=== PATIENT | male | born 1950 | race Caucasian/White ===

== ENCOUNTER 2024-07-15 08:14 | Day surgery (SDC) | payer OTHER, SELFPAY ==
[2024-07-10 13:55] VITALS: BMI 29.5
[2024-07-10 14:26] LABS: % Basophils 0.8 % (0-2); % Eosinophils 1.9 % (0-6); % Immature Granulocytes 0.3 % (0-0.5); % Lymphocytes 28.5 % (20.5-51.1); % Monocytes 9.7 % (1.7-9.3); % Neutrophils 58.8 % (42.2-75.2); Absolute Basophils 0.1 10^3/uL (0-0.2); Absolute Eosinophils 0.1 10^3/uL (0-0.7); Absolute Lymphocytes 1.8 10^3/uL (1.2-3.4); Absolute Monocytes 0.6 10^3/uL (0.1-0.6); Absolute Neutrophils 3.6 10^3/uL (1.4-6.5); Hematocrit 42.7 % (39.0-52.0); Hemoglobin 14.4 g/dL (13.0-18.0); Mean Corp Hgb Conc. 33.7 g/dL (33.0-37.0); Mean Corpuscular Hgb 32.1 pg (27.0-31.0); Mean Corpuscular Volume 95.1 fL (80.0-94.0); Mean Platelet Volume 9.2 fL (7.4-10.4); Nucleated Red Blood Cells % 0 % (-); Platelet Count 221 10^3/uL (130-400); Red Blood Cell Count 4.49 10^6/uL (4.70-6.10); Red Cell Dist. Width 12.7 % (11.5-14.5); White Blood Cell Count 6.2 10^3/uL (4.8-10.8)
[2024-07-10 14:29] LABS: ALT (SGPT) 18 U/L (0-50); AST (SGOT) 21 U/L (17-59); Alkaline Phosphatase 53 U/L (38-126); Blood Urea Nitrogen 15 mg/dl (9-20); Calcium 9.4 mg/dl (8.4-10.2); Carbon Dioxide 31 mmol/L (22-30); Chloride 103 mmol/L (98-107); Estimated Creatinine Clearance 69 ml/min; Glucose 94 mg/dl (70-99); Potassium 4.5 mmol/L (3.5-5.1); Sodium 140 mmol/L (135-145); Total Bilirubin 1.2 mg/dl (0.2-1.3); Total Protein 6.7 g/dl (6.3-8.2); eGFR > 60.00
[2024-07-15] VITALS (15 sets, daily range): BP systolic 89–158; BP diastolic 58–118
[2024-07-15] MEDS: NSS 500 IV (09:47)
[2024-07-15 12:01] LABS: ACT-LR - POC 327 Seconds (116-155)
[2024-07-15 12:35] LABS: ACT-LR - POC 390 Seconds (116-155)
[2024-07-15 13:09] LABS: ACT-LR - POC 348 Seconds (116-155)
--- NOTE | 2024-07-15 13:38 | ITS.CL.ABL ---
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
Ablation
Procedure Report:
AFIB ablation:
Mr. Floyd is a very pleasant 73 yr old gentleman with symptomatic persistent AF / atypical atrial flutter failed Flecainide and Atenolol with presented today to the EP lab for atrial fibrillation ablation.
Date of the Procedure:
07/15/2024
Indications:
Persistent atrial fibrillation
Pre-Operative Diagnosis:
Persistent atrial fibrillation
Post-Operative Diagnosis:
Persistent atrial fibrillation
Procedure Performed:
Atrial fibrillation ablation with Pulsed-Field approach for pulmonary vein isolation
Posterior wall isolation
Performing Physician:
Christnia Perez MD
Assistants:
EP staff
Anesthesia:
See anesthesia records
Detailed Description of the Procedure:
Written informed consent was obtained from the patient after a full explanation of the risks and benefits of the procedure including the risks of sedation and anesthesia.
The patient was brought to the electrophysiology laboratory in stable condition in fasting state. Continuous electrocardiographic and hemodynamic monitoring was initiated.
The initial rhythm was atrial fibrillation.
The procedure site was meticulously prepared with surgical scrub and allowed to dry with no pooling. Sterile draping was applied to cover the procedure site. The image intensifier was draped with sterile bag and positioned over the patient. After
infusion of local anesthetic, vascular access was obtained under ultrasound guidance and sheaths were placed over guide wire as detailed below.
Sheath and Catheter Placement:
In the right femoral vein, an 8-Haitian sheath was placed under ultrasound guidance for use during the ablation procedure and a mapping catheter was intermittently placed in the high right atrium, right ventricle, left atrium. In the right femoral
vein, another 9-Fr sheath was placed for use during intra-cardiac echo procedure. Another 7Fr sheath was placed in the left femoral vein for CS catheter placement.
The sheaths were upgraded as needed during the case. Intra-cardiac catheters were positioned using direct fluoroscopic guidance. Decapolar catheter advanced into CS position. ICE catheter was placed in RA. The following catheters / sheaths were
placed
Sheaths:
��������� 15Fr steerable sheath (FlexCath Cross�, Virtual Paper) in right femoral vein in right femoral vein
��������� 9Fr in right femoral vein
��������� 7Fr in right femoral vein
Catheters:
��������� ROBERT HD Grid mapping catheter � at locations of RA, LA
��������� PulseSelect� PFA catheter
��������� ICE catheter -AcuNav - at locations of RA, SVC, and RV.
��������� Decapolar Bard catheter in RA and CS
Intracardiac ECHO:
An 8-Haitian AcuNav intracardiac ECHO (ICE) probe was advanced through the 9-Haitian sheath in the right femoral vein into the right atrium under fluoroscopic and ICE ultrasound image guidance and a baseline ECHO study was performed. The left atrial
size was dilated. There was moderate tricuspid regurgitation. The aortic valve was grossly normal. There was normal left ventricular systolic functions. There is trace pericardial effusion. All the four veins were identified and has flow identified.
During the procedure, ICE was used for monitoring of complications, guidance of trans-septal puncture, monitor the catheter position and tracking ablation lesions. No change in the pericardial space noted throughout the procedure.
Trans-septal Puncture:
Heparin was initiated and infused to maintain appropriate ACT. A J-tipped guidewire was advanced through the 8-Haitian sheath in the right femoral vein into the superior vena cava under fluoroscopic and ICE guidance. The 8-Haitian sheath was exchanged
for a FlexCath Cross sheath which was advanced into the superior vena cava. An [employer] transseptal access system was utilized to perform the trans-septal puncture. The apparatus was withdrawn until it was in contact with the fossa ovalis. The
position was adjusted based on fluoroscopy and ultrasound images from ICE. Under fluoroscopic, hemodynamic and ICE ultrasound guidance, left atrium was cannulated by advancing the needle. Once atrial septum was cannulated, the needle was pulled back
and a guide wire was advanced through the needle into the left atrium. The guide wire was advanced into the left superior pulmonary vein. Both the sheath and the dilator was advanced into the left atrium. The dilator with the needle was withdrawn.
Blood was aspirated from the FlexCath cross sheath and arterial blood confirmed. The sheath was flushed. Saline injection noted into the left atrium on ICE. The mapping catheter was advanced in the Flexcath sheath into the left pulmonary vein. Left
atrial pressure was measured.
3D Electroanatomic Mapping:
Using the HD Grid catheter advanced through sheath into the left atrium, an electroanatomic map (EAM) of the left atrium was created using [employer] mapping system. The map was used for localization of catheter position and tacking of ablation
lesions. The EAM of the left atrium showed 5 pulmonary veins with two left sided and three right sided veins electrically connected to the body the LA. There was extensive areas of low voltage noted in the left atrium with minimal electrical
activity in the posterior wall in atrial fibrillation. But once mapped in sinus rhythm, the posterior and anterior mistry had some healthy areas with only patchy scar all over the LA.
The LA was dilated in size.
Following the EAM, preparation were made for ablation.
Ablation:
Ablation # 1: Pulmonary vein Isolation:
Glycopyrrolate 0.2 mg was given prior to the placement of ablation. Using OpenDrive� pulsed field ablation system, pulmonary vein isolation was achieved. First the ablation catheter was placed in the LIPV and ostial ablation lesions were performed
in a counter clock sweet approach all around the PV ostium circumferentially. Then the catheter was placed on the antral location and multiple ablation lesions were placed circumferentially on the antrum of the vein.
In the similar fashion, the LSPV were isolated.
Then the catheter was moved to right sided veins. The ostial and antral ablations were placed as noted above to the RSPV and RIPV.
Ablation # 2: Posterior wall isolation:
With low voltage areas of the posterior wall and atypical atrial flutters, it was decided to create the roof line block and then proceed with tractor operator laser leveling wall isolation. �
Using the pulsed field ablation catheter, the catheter was placed on the posterior wall and moved around the posterior wall to have adequate contact and ablations were placed isolating the posterior wall.
Cardioversion:
Once the PV isolation was achieved, decision was made to proceed with cardioversion. A 200 J biphasic shock was applied on the annel posterior Zoll patches and sinus rhythm was achieved. No significant pause noted.
�
Summary of ablation applied:
LSPV: 18 lesions ;�������������� RSPV: 12 lesions;�������������
LIPV: 17 lesions; �������������� RIPV: 17 lesions
PW: 19 lesions.
Total 83 ablation lesions.
Post ablation Electroanatomic mapping:
Once ablation was completed, the EAM of the LA was done again in sinus rhythm with excellent demarcation of LA myocardium and isolated antral tissue. There was dissociated signals were noted in the veins as well.
EPS and Confirmation of the PVI and bidirectional block:
Following achievement of entrance block at the pulmonary veins, pacing from the HD catheter in each of the four veins at 10 milliamps for 2 milliseconds showed entrance and exit block. All PVI were rechecked at the end of the case and remained
isolated with dissociated and local capture with pacing. Entrance and exit block were demonstrated in all veins.
Procedure End
ICE study was done again that showed no epicardial accumulation. No complications noted.
Following the completion of the EP study, catheters were removed. Protamine 40 mg was given at the end of the procedure and ACT was checked repeatedly. The sheaths were removed and hemostasis achieved with VASCADE and manual compression after
acceptable ACT is achieved.
Left atrial Pressure:
Pre-Procedure: Mean LA pressure was 11mmHg
Post-Procedure: Mean LA pressure was 10mmHg
Post-Procedure: Mean LR pressure was 7mmHg
Fluoro time:
9.3min / 9.05 Gycm2
Estimated Blood loss:
<10 cc
Specimens Removed:
None.
Implants / Devices:
None
Urine output:
None
Packs / Drains/ Tubes:
None
Instrument / Sponge Count Correct:
Yes
Complications of the Procedure:
None
Condition of Patient at Time of Transfer:
Hemodynamically stable with no neurological or vascular compromise.
Summary:
Successful atrial fibrillation ablation with Pulsed Field approach for pulmonary vein isolation
Figures from the Procedure:
Figure 1: The electroanatomic mapping (EAM) of the left atrium with bipolar voltage (purple indicates normal electrical activity with lin as no myocardial muscle electric activity indicating a line of block or scar.
[2024-07-15] MEDS: TYLENOL 650 MG PO (14:23)
[2024-07-15] MEDS: ANESTHETIC LOZENGE 1 LOZENGE PO (14:25)
--- NOTE | 2024-07-15 16:21 | W.PN.UPDATE ---
Update Note
Progress Note Update
Pt seen post PFA. Right groin site with vascade closure, no ht/bleeding. OOB ambulating. Urinating without difficulty. Post EKG NSR, no acute changes. Resume eliquis tonight at usual time. Discontinue flecainide. Followup at [facility] as scheduled and
with Dr. Chavarria thereafter. Home today if groin site/tele remain stable.
== END 2024-07-15 17:05 | disposition home or self-care (01) ==
LOC: CATH 08:14
PROVIDERS: ATTENDING PHYSICIAN Internal Medicine Cardiovascular Disease; FAMILY PHYSICIAN Family Medicine
DX: I48.19 Other persistent atrial fibrillation (principal); Z82.49 Family history of ischemic heart disease and other diseases of the circulatory system; I10 Essential (primary) hypertension; Z79.01 Long term (current) use of anticoagulants
CPT/HCPCS: C1732; C1769 ×2; C1894; C1730; C1766; C1892; 36415; 80053; 85025; 85347; 86850; 86900; 86901; 93005; 93656; 93657; C1733; C1759; C1760

== ENCOUNTER 2024-09-25 08:46 | Day surgery (SDC) | payer OTHER, SELFPAY ==
[2024-09-25] VITALS (29 sets, daily range): BP systolic 88–156; BP diastolic 61–98
[2024-09-25 11:54] LABS: ACT-LR - POC 314 Seconds (116-155)
[2024-09-25 12:13] LABS: ACT-LR - POC 284 Seconds (116-155)
[2024-09-25 12:47] LABS: ACT-LR - POC 376 Seconds (116-155)
--- NOTE | 2024-09-25 13:41 | ITS.CL.ABL ---
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
Ablation
Procedure Report:
AFIB / A flutter ablation:
Mr. Floyd is a very pleasant 74 yr old gentleman with medical history significant for symptomatic persistent atrial fibrillation s/p AF ablation on 07/15/24 with PVI and PWI using pulse select PFA catheter and ROBERT mapping who had developed atypical
atrial flutter in the office and now has degenerated into atrial fibrillation and is here in the EP lab for atrial fibrillation / flutter ablation
Date of Procedure:
09/25/2024
Indications:
Symptomatic persistent atrial fibrillation / atrial flutter
Pre-Operative Diagnosis:
Persistent atrial fibrillation / atrial flutter
Post-Operative Diagnosis:
Persistent atrial fibrillation / atrial flutter
Procedure Performed:
Redo atrial fibrillation ablation
Roof line formation for atypical roof dependent atrial flutter
Posterior wall isolation ablation
Left atrial anterior wall tachycardia ablation
Biatrial flutter ablation
Ablation of anterior wall flutter line of block creation for demetrius-mitral flutter
Performing Physician:
Christina Perez MD
Assistants:
EP staff
Anesthesia:
See anesthesia records
Detailed Description of the Procedure:
Written informed consent was obtained from the patient after a full explanation of the risks and benefits of the procedure including the risks of sedation and anesthesia.
The patient was brought to the electrophysiology laboratory in stable condition in fasting state. Continuous electrocardiographic and hemodynamic monitoring was initiated.
The initial rhythm was atrial fibrillation.
The procedure site was meticulously prepared with surgical scrub and allowed to dry with no pooling. Sterile draping was applied to cover the procedure site. The image intensifier was draped with sterile bag and positioned over the patient. After
infusion of local anesthetic, vascular access was obtained under ultrasound guidance and sheaths were placed over guide wire as detailed below.
The images of the ultrasound of the femoral vessels were stored in patient chart.
Sheath and Catheter Placement:
Given patient renal transplant, long sheaths were used for the acess
Sheaths:
��������� Agilis sheath in right femoral vein upgraded from 8Fr in right femoral vein
��������� 9Fr in left femoral vein
Catheters:
��������� The Affera Sphere 9 catheter -bidirectional D/F� - at locations of HRA, RV, LA and LV.
��������� ICE catheter -AccuNav -� at locations of RA, SVC, and RV.
Heparin was initiated after the access was obtained.
Intracardiac ECHO:
An 8-Slovak AcuNav intracardiac ECHO (ICE) probe was advanced through the 9-Slovak sheath in the left femoral vein into the right atrium under fluoroscopic and ICE ultrasound image guidance and a baseline ECHO study was performed. The left atrial
size was dilated. There was trace tricuspid regurgitation. The aortic valve was grossly normal. There was normal left ventricular size and function. There is a trace pericardial effusion. The BRANDON has normal velocities. The pulmonary had good flow
identified.
During the procedure, ICE was used for monitoring of complications, guidance of trans-septal puncture, monitor the catheter position and tracking ablation lesions. No change in the pericardial space noted throughout the procedure.
Trans-septal Puncture:
Heparin was initiated and infused to maintain appropriate ACT. A J-tipped guidewire was advanced through into the superior vena cava under fluoroscopic and ICE guidance. The Agilis sheath with BRK needle was advanced into the superior vena cava over
the guidewire. The apparatus was withdrawn until it was in contact with the fossa ovalis. The position was adjusted based on fluoroscopy and ultrasound images from ICE. Under fluoroscopic, hemodynamic and ICE ultrasound guidance, left atrium was
cannulated by advancing the needle. Once atrial septum was cannulated, the needle was pulled back and the guide wire was advanced through the needle into the left atrium. The guide wire was advanced into the left superior pulmonary vein. Both the
sheath and the dilator was advanced into the left atrium. The dilator with the needle was withdrawn. Blood was aspirated from the Agilis sheath and arterial blood confirmed. The sheath was flushed. Saline injection noted into the left atrium on ICE.
The waveform of the LA pressure was recorded. The mapping catheter was advanced in the Agilis sheath into the left pulmonary vein.
3D Electroanatomic Mapping:
Using the Sphere 9 Affera catheter advanced through Agilis sheath into the left atrium, an electroanatomic map (EAM) of the left atrium was created using [employer]� mapping system with Pomelo-1 software. The map was used for localization of catheter
position and tacking of ablation lesions. The EAM of the left atrium showed a total of 4 PVs with two left and the two right sided pulmonary veins with all electrically isolated from the body the LA. It showed scattered scar on the posterior wall of
the LA. The LA was dilated in size.
Cardioversion:
The EAM of the LA was difficult to assess in atrial fibrillation and to assess PV and posterior wall connections, patient was cardioverted to sinus rhythm. A synchronized 150 J shock was delivered via annel-posterior Zoll patches restoring his
rhythm to sinus.
�
The EAM in sinus rhythm showed silent vein with some electrograms still present on the posterior wall. There was extensive scar on the anterior wall slowing the conduction and a set up for flutter.
Following the EAM, preparation were made for ablation.
Ablation:
Ablation # 1: Atypical atrial flutter / Roof line Formation:
Given silent pulmonary veins, the decision was made to proceed with roof line formation for the AF/Flutter.
Pulsed field ablation was performed using an open irrigation, bidirectional, contact sensing, dual energy ablation catheter (Affera sphere -9). A set of pulsed field ablations were placed on the roof line connecting the left superior pulmonary vein
ablation lesions to the right superior pulmonary vein lesions rings.
Ablation # 2: Pulmonary vein Isolation:
Pulsed field ablation was performed using an open irrigation, bidirectional, contact sensing, dual energy ablation catheter (Affera sphere -9) by completing the circumferential lesions around the left and right pulmonary veins achieving pulmonary
vein isolation extending the WACA lesions.
Confirmation of the PVI and bidirectional block:
Following achievement of entrance block at the pulmonary veins, pacing from the Sphere 9 affera catheter in each of the four veins at 20 milliamps for 4 milliseconds showed entrance and exit block.
The LA was mapped with The [employer]� mapping system with Prism-1 software in sinus rhythm confirming the line of block at the ablation lesions lines.
Ablation # 3: Posterior wall isolation with the Box lesions set Formation:
There was a significant fractionation seen in the posterior wall and LA AF foci along with CFAE made it clear as the posterior wall is critical in maintaining the atrial fibrillation and the decision was made to isolate the posterior wall by
creating a �Box� lesions.
A set of Pulsed field ablations were placed on the floor line connecting the left inferior pulmonary vein ablation lesions to the right inferior pulmonary vein lesions rings.
The sphere 9 in the posterior wall showed entrance block and the pacing from the posterior wall showed no exit from the box lesions confirming the exit block.
With the box lesion created and block confirmed, the decision was made to ablate the posterior wall severing epicardial connections and decision was made to create the Y ablation on the posterior wall.
A series of ablations were placed connecting the junction of left superior pulmonary vein and the roof line to the junction of right inferior pulmonary vein and the floor line ablating the ganglion plexi next to both antra.
Ablation # 4: Anterior wall focal / micro reentry flutter ablation:
There was focal atrial tachycardia noted at the base of the BRANDON on the anterior wall with baseline severely fractionated signals adjacent to a scar tissue.
Series of ablations were placed to suppress any abnormal activity.
Ablation # 4: Anterior left atrial Mitral flutter line
The ablation at the anterior wall made the continuation of flutter more likely. The flutter was also thought to be mitral dependent.
A series of ablations were placed connecting the scar to the anterior wall and to the mitral isthmus and to the roof line.
Ablation # 4: Biatrial flutter with Ricarda bundle ablation.
The flutter was noted that was originating at the ricarda bundle indicating involving both the atria. The ablation was done at the earliest origin on the Ricarda bundle and connected that area to the mitral line of block.
EP study:
Sinus Node Function: The sinus node functions are within acceptable normal range.
Atrioventricular Peewee Function: �Norm AV conduction noted with normal decremental conduction.
Procedure End
ICE study was done again that showed no epicardial accumulation. No complications noted.
Following the completion of the EP study, catheters were removed. Protamine 30 mg was given at the end of the procedure and ACT was checked repeatedly. The sheaths were removed and hemostasis achieved with manual compression after acceptable ACT is
achieved.
Left atrial Pressure:
Pre-Procedure: Mean LA pressure was 21mmHg
Post-Procedure: Mean LA pressure was 19mmHg
Post-Procedure: Mean RA pressure was 14mmHg
Estimated Blood loss:
<10 cc
Specimens Removed:
None.
Implants / Devices:
None
Urine output:
None
Packs / Drains/ Tubes:
None
Instrument / Sponge Count Correct:
Yes
Complications of the Procedure:
None
Condition of Patient at Time of Transfer:
Hemodynamically stable with no neurological or vascular compromise.
Summary:
��������� Successful atrial fibrillation ablation with circumferential bidirectional line of block at pulmonary venin antra (Pulmonary vein isolation), roof flutter line creation, Posterior wall isolation, focal atrial tachycardia ablation, mitral
flutter ablation, biatrial flutter ablation.
Figures from the Procedure:
Figure 1: The electroanatomic mapping (EAM) of the left atrium with bipolar voltage (purple indicates normal electrical activity with red as no myocardial muscle electric activity indicating a line of block or scar.
--- NOTE | 2024-09-25 16:18 | W.PN.UPDATE ---
Update Note
Progress Note Update
74 yo WM s/p PVI/Aflutter ablation (same day). He denies cp, sob, roro diet, EKG SR, R fem site initially with some bleeding, manual pressure held and remains c/d/i, soft. He was told to switch from eliquis to pradaxa due to cost on 09/17 office visit,
but he stopped eliquis when he ran out on 09/21. AMILCAR was done prior to ablation with no BRANDON clot. He will start pradaxa tonight at home 7pm. Activity restrictions reviewed. 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 He is for d/c home after 6pm if groin stable and
able to void.
[2024-09-25] MEDS: PRADAXA 150 MG PO (18:40)
== END 2024-09-25 19:10 | disposition home or self-care (01) ==
LOC: CATH 08:46
PROVIDERS: ATTENDING PHYSICIAN Internal Medicine Cardiovascular Disease; FAMILY PHYSICIAN Family Medicine; OTHER PHYSICIAN Internal Medicine Clinical Cardiac Electrophysiology
DX: I48.19 Other persistent atrial fibrillation (principal); I08.3 Combined rheumatic disorders of mitral, aortic and tricuspid valves; I70.0 Atherosclerosis of aorta; I08.8 Other rheumatic multiple valve diseases; I48.4 Atypical atrial flutter; I10 Essential (primary) hypertension; Z79.01 Long term (current) use of anticoagulants
CPT/HCPCS: 93655; 93312; 93320; 93325; C1769; C1894; C1730; C1733; C1766; C1892; C1759; 85347; 86850; 86900; 86901; 93005; 93656; 93657

== ENCOUNTER 2025-03-05 11:31 | Day surgery (SDC) | payer OTHER, SELFPAY ==
[2025-03-05] VITALS (12 sets, daily range): BP systolic 108–125; BP diastolic 80–94; BMI 25.7
--- NOTE | 2025-03-05 15:38 | ITS.CL.PACE ---
[employer] Contact Printer - Pacemaker Implant
Pacemaker Implant
Procedure Report:
Conduction system pacing Permanent Pacemaker Placement:
Mr. 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
Indications:
Tachy bradycardia syndrome
Date of the Procedure:
03/05/2025
Pre-Operative Diagnosis: Tachy bradycardia syndrome
Post-Operative Diagnosis: Tachy bradycardia syndrome
Procedure Performed: Conduction system pacing permanent pacemaker
Performing Physician:
Christina Perez MD
Anesthesia:
See anesthesia report.
Detailed Description of the Procedure:
The patient was identified using hospital identification and informed consent obtained for the procedure. The risks were explained to the patient and the family including, but not limited to: Bleeding, infection, arrhythmia, stroke,
vascular/cardiac/lung puncture, surgery, pacemaker dependency/device malfunction. All questions were answered.
A surgical pause was performed in accordance with hospital regulations. Anesthesia service provided sedation as reported separately. Antibiotics administered IV for risk of bacterial colonization. After obtaining informed and written consent, the
patient was brought to the electrophysiology laboratory.
The initial rhythm was atrial flutter
The procedure site was meticulously prepared with surgical scrub and allowed to dry with no pooling. Sterile draping was applied to cover the procedure site. The image intensifier was draped with sterile bag and positioned over the patient.
A surgical pause and time out was performed immediately prior to the procedure with review of her medical history, recent labs, allergies and medications with site of procedure identified and consent noted in the chart. Antibiotics pre operatively
given. All team members concurred.
The left infraclavicular region was prepped and draped in the usual sterile fashion. Local anesthesia was administered subcutaneously using 1% lidocaine / Bupivacaine. The left cephalic vein cutdown was performed with an incision at the
delto-pectoral groove, and vascular sheath was introduced for lead access.
A subcutaneous pocket was created with blunt dissection and use of electrocautery. Hemostasis was excellent.
The guide wire was advanced to the RA and was advanced to the RV. The preformed curved long hemostatic peel away HIS sheath was advanced into the RV cavity. A left bundle pacing wire was advanced into the sheath to the tip with ventricular signals
noted with unipolar manner.
The HIS location was identified under guidance of the fluoroscopy and the pacing wire signals. The sheath with the pacing lead was moved deeper into the RV cavity on the septum at a more inferior and distal to the HIS signals.
There was sheath approximation confirmed on ЮЛИЯ view. Once adequate signals were noted on the electrograms of the pacing lead in the sheath with W pattern signals on the RV septum, the lead was advanced and clockwise turns were done under
fluoroscopic guidance. The septum was engaged and the lead was paced intermittently after every 2-3 turns. The Impedance of the lead was measured that remained stable around 700 Ohm. The lead was paced and septal pacing was noted. The sheath was
placed again to the septum and the lead was advanced 2-3 turns with pacing with each advancement. The ventricular capture was monitored throughout and the captures gradually changed from RV pacing to non-selective pacing to LBB pacing with R wave on
V1 morphology.
The long guiding sheath was cut and removed from the RV without change in lead position, impedance, sensing, or capture. The lead was sutured to the underlying pectoralis fascia with 2-0 Ethibond stitches.
Then the attention was given to atrial lead. Atrial active lead was placed in the RA and into the RAA. There were excellent impedance and thresholds.
The leads were attached to the pulse generator in standard configuration with acceptable sensing and threshold parameters. The pocket was irrigated with antibiotic solution; the pocket was inspected with no active bleeding noted. The device and the
leads were placed in the pocket.
The pocket was rinsed with antibiotics soaked solution.
Deep subcutaneous tissues were closed with three layers of 2-0 V loc sutures; and the dermis was reopposed using a running 4-0 Monocryl subcuticular suture.
Sponge counts / sharp counts were appropriate.
Procedure End:
The procedure was tolerated well. Aquacel bandaged was applied.
Estimated Blood loss:
5 cc
Specimens Removed:
No cultures and no specimens were obtained. No intraoperative pathology was identified.
Urine output:
None
Packs / Drains/ Tubes:
None
Instrument / Sponge Count Correct:
Yes
Flouro time:
1.4min / 0.59 Gycm2
Complications of the Procedure:
None
Condition of Patient at Time of Transfer:
Hemodynamically stable with no neurological or vascular compromise.
Device information:�
Generator: Auditude; Model: W1DR01; Serial # [id number]�
RA pacing lead: Auditude; Model: 5076-52; Serial # [id number]
Measured data on the RV lead was sensing of 1.3 mV of flutter waves, impedance of 475 ohms. Burst pacing was able to capture atrium but was not able to eliminate flutter.
RV LBB pacing lead: MedKardium; Model: 3830-69; Serial # [id number]
Measured data on the RV lead was sensing of 7.3mV, impedance of 722 ohms and threshold of 0.75 V at 0.4ms�
PROGRAMMING PARAMETERS:�
Sarah parameter settings were AAIR <=> DDDR 60-130 �
Paced AV interval: 180ms
Sensed AV interval: 150 ms.
Rate Adaptive A-V Interval: on
Mode switch ON
Summary:
Successful implantation of MRI compatible dual chamber conduction system pacing permanent pacemaker.
Results/Recommendations:
-Please follow up CXR�
1. Please provide patient with adequate pain control�
Instructions to be given to patient:�
- Please follow up with [facility] at [address] [place] [address] ([phone]) to get your wound checked in 2 weeks of your discharge. Then follow with
- Do not wet incision site until after it is evaluated at cardiology clinic. No baths or showers until then. Sponge baths / showers are OK but dab dry the dressing after it is wet.�
- Allow 'steri strips' to fall off on their own�
- Do not lift left elbow above shoulder, particularly with sudden jerking movements, for 1 month�
- Do not lift anything weighing more than 5 pounds with the left arm for 1 month�
- If you notice any fevers, shortness of breath, lightheadedness, chest pain, or worsening swelling in the wound site, please contact the arrhythmia clinic, contact your head resident, or present to the hospital for evaluation.�
Christina Perez MD
Electrophysiology
--- NOTE | 2025-03-05 17:04 | PTCARENOTE ---
Patient admitted to IVU, AO x3. NSR with first degree HB. Dressing to left chest wall dry and intact with pressure dressing and immobilizer. Plan of care reviewed, VSS, call jacome in reach
[2025-03-05] MEDS: TOPROL XL 50 MG PO (19:49)
[2025-03-05] MEDS: ANCEF 5 IV (19:50)
--- NOTE | 2025-03-05 20:37 | PTCARENOTE ---
Pt rec'd at change of shift awake,alert. No c/o pain at pacer site. Pressure drsg, immobilizer in place with elbow supported with pillow. Sinus with first degree on tele strip. CXR completed in dept;no pneumo noted on report. Call jacome within reach.
[2025-03-06 04:16] VITALS: BP 123/90
[2025-03-06] MEDS: ANCEF 5 IV (04:28)
[2025-03-06 04:51] LABS: Hematocrit 40.8 % (39.0-52.0); Hemoglobin 13.5 g/dL (13.0-18.0); Mean Corp Hgb Conc. 33.1 g/dL (33.0-37.0); Mean Corpuscular Volume 95.3 fL (80.0-94.0); Platelet Count 189 10^3/uL (130-400); Red Cell Dist. Width 12.9 % (11.5-14.5)
--- NOTE | 2025-03-06 05:09 | PTCARENOTE ---
Pt remains pain free. Left pacer site with pressure drsg and immobilizer intact. Sinus on telemetry
[2025-03-06 05:17] LABS: Blood Urea Nitrogen 11 mg/dl (9-20); Calcium 9.0 mg/dl (8.4-10.2); Carbon Dioxide 26 mmol/L (22-30); Chloride 109 mmol/L (98-107); Estimated Creatinine Clearance 75 ml/min; Glucose 86 mg/dl (70-99); HDL Cholesterol 51 mg/dl; LDL Cholesterol, Calculated 114 mg/dl; Magnesium 2.3 mg/dl (1.6-2.3); Potassium 4.2 mmol/L (3.5-5.1); Sodium 136 mmol/L (135-145); Very Low Density Lipoprotein 14 mg/dl (0-30); eGFR > 60.00
[2025-03-06 06:10] LABS: Hepatitis C Antibody Negative (Negative)
[2025-03-06 07:25] VITALS: BP 116/87
[2025-03-06] MEDS: CARDIZEM CD 240 MG PO (08:20)
[2025-03-06] MEDS: TOPROL XL 50 MG PO (08:20)
--- NOTE | 2025-03-06 08:37 | W.PN.CARDCBS ---
Addendum entered and electronically signed by Maged Bella MD 03/06/25 10:03:
I reviewed and agree with the note by JOHN and it accurately reflects our care.
I saw and evaluated the patient, and I provided the substantive portion of the medical decision making. My assessment and plan is below:
Mr. Floyd is a 74 old gentleman with persistent AF s/p AF ablation and now with atypical atrial flutter and tachy sarah syndrome with frequent symptomatic pauses, s/p PPM on 03/05/25.
Physical exam: RRR, no murmurs, clear lungs, no edema, PPM site with no erythema, induration, or fluctuance
Okay for discharge today. Continue diltiazem and metoprolol (which will be new for him). Resume dabigatran tonight.
Original Note:
Today's Communication / Plan
-
post DC PPM, stable for d/c home
Impression / Plan
-
PCP: David Madera MD
CDY: Hola Chavarria MD
Mr. Floyd is a 74 old gentleman with persistent AF s/p AF ablation and now with atypical atrial flutter and has tachy sarah syndrome with frequent symptomatic pauses is in need for a PPM.
Impression/Plan:
#Tachy bradycardia syndrome - post DC PPM (LABP), site stable, CXR no PTX, occ Vpacing and ATach on tele o/n
Continue diltiazem and new start to metoprolol xl 50mg bid
#Atrial fibrillation/Aflutter - prior ablations July and September 2024
Resume dabigatran tonight, plan for possible ablation in near future per IK
#Hyperlipidemia
#HTN
Plan for d/c home today
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
Subjective
Date of Service: March 06, 2025
denies cp, sob, mild inc pain
Objective
Labs:
03/06/25 04:34
03/06/25 04:34
Labs
Hgb 13.5 g/dL (13.0-18.0) 03/06/25 04:34
Hct 40.8 % (39.0-52.0) 03/06/25 04:34
Plt Count 189 10^3/uL (130-400) 03/06/25 04:34
Sodium 136 mmol/L (135-145) 03/06/25 04:34
Potassium 4.2 mmol/L (3.5-5.1) 03/06/25 04:34
BUN 11 mg/dl (9-20) 03/06/25 04:34
Creatinine 0.9 mg/dL (0.7-1.3) 03/06/25 04:34
Glucose 86 mg/dl (70-99) 03/06/25 04:34
Vital Signs and I&O:
Vital Signs
Temp Pulse Resp BP Pulse Ox
98.2 F 82 20 116/87 96
03/06/25 07:25 03/06/25 08:00 03/06/25 07:25 03/06/25 07:25 03/06/25 07:25
Vital Signs
Temp Pulse Resp BP Pulse Ox
98.2 F 82 20 116/87 96
03/06/25 07:25 03/06/25 08:00 03/06/25 07:25 03/06/25 07:25 03/06/25 07:25
Physical Exam
Physical Exam
NAD< AOX3
S1, S2, RRR
CTAB, non labored, no wheeze
SNTND Bsx4
L CW site c/d/i, pressure dressing removed
--- NOTE | 2025-03-06 09:11 | CM ---
Reviewed chart. Met with Mr. Floyd to review discharge plans. He states prior to admission he resides with his spouse in a two story home with two steps to enter. He states he has a full flight of steps to get to bedroom/full bathroom. He states
he has a powder room on the first floor. He states prior to admission he was independent with ambulation and adls. He states he does not have any DME in the home. He states he has a prescription plan and uses [facility]. The discharge
plan is to return home with his spouse when medically stable.
--- NOTE | 2025-03-06 10:07 | W.DS.TRANS ---
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
-
Discharge Instructions:
Sleep Apnea Risk Low
Discharge Diagnosis/Procedures Pacemaker implant
Diet Low Cholesterol
Driving Restrictions No driving for 1 week
Bathing Restrictions OK to Shower
Instructions:
Stand-Alone Forms: DC Inst - Implanted Device
Changes to Home Medications: Yes
Discharge Medications:
DC Medications w/original date entered in [employer]
diltiazem HCl 240 mg capsule,extended release 24 hr 240 mg PO DAILY Heart Disease/Condition 09/25/24
garlic extract 650 mg capsule 650 mg PO DAILY Supplement 03/05/25
dabigatran etexilate 150 mg capsule (Pradaxa) 150 mg PO BID Blood Clot Prevention/Tx 03/06/25
metoprolol succinate 50 mg tablet,extended release 24 hr 50 mg PO BID #60 tabs 03/06/25
Home Medication Changes
new to metoprolol
Pending Results: No
[2025-03-06 11:37] VITALS: BP 120/87
--- NOTE | 2025-03-06 12:09 | PTCARENOTE ---
PT ambulating in room and aviles, D/C instructions reviewed with Pt, he expressed understanding
== END 2025-03-06 12:30 | disposition home or self-care (01) ==
LOC: CATH 11:31
PROVIDERS: Nurse Practitioner Adult Health; ATTENDING PHYSICIAN Internal Medicine Cardiovascular Disease; FAMILY PHYSICIAN Family Medicine; OTHER PHYSICIAN Internal Medicine Clinical Cardiac Electrophysiology
DX: I49.5 Sick sinus syndrome (principal); I48.19 Other persistent atrial fibrillation; I48.4 Atypical atrial flutter; E78.5 Hyperlipidemia, unspecified; I10 Essential (primary) hypertension; I44.0 Atrioventricular block, first degree; Z79.01 Long term (current) use of anticoagulants
CPT/HCPCS: 33208; 71045; 80048; 80061; 83735; 85027; 86803; 93005; C1769; C1785; C1887; C1898